=== PATIENT | female | born 1975 | race Caucasian/White ===

== ENCOUNTER 2018-07-31 09:19 | Outpatient (CLI) | payer BC ==
[~2018-07-31] VITALS: Ht 170.2 cm; Wt 112.0 kg
[~2018-07-31 09:19] MED LIST: CENTRUM1 TA1; COZAAR 50MG50 MG/TAB PO; CRANBERRY500 M3 PO; FLORAJEN A20 Billion; HCTZ12.5TAB PO; K-TAB20 PO; KAPSPARGO SPRIN50 MG PO; PRIL40 PO; VITAMIND3 5000 PO; WELLBUTRIN SR150 M1 PO
[2018-07-31 10:06] VITALS: BP 129/67; PULSE 55; TEMP 98.1
[2018-07-31 11:45] VITALS: BP 140/76; PULSE 59
[2018-07-31] MEDS ORDERED: CLEOCIN HCL300 MG PO (11:45)
[2018-07-31 12:42] VITALS: BP 127/71; PULSE 60
== END 2018-07-31 12:56 | disposition home or self-care (01) ==
LOC: COL.CAR 09:19
DX: I47.1 Supraventricular tachycardia (principal); Z88.0 Allergy status to penicillin; Z88.1 Allergy status to other antibiotic agents